=== PATIENT | female | born 1960 | race Caucasian/White ===

== ENCOUNTER 2021-08-04 19:07 | Emergency (ER) | payer OTHER ==
[2021-08-04 19:53] LABS: BASOPHIL 0.2 % (0-2); EOSINOPHIL 0 % (0-5); HCT > 60.0 % (37.0-47.0); HGB 18.6 g/dl (12.5-16.0); LYMPHOCYTE 5.3 % (15-48); MCH 32.1 pg (25.0-31.0); MCHC 30.4 g/dL (32.0-36.0); MCV 105.5 fL (78.0-100.0); MONOCYTE 15.1 % (0-12); MPV 9.9 fL (6.0-9.5); NEUTROPHIL 78.9 % (41-80); NRBC 0.2; PLT 304 K/uL (150-400); RDW 15.9 % (11.5-14.0); WBC 9.7 K/uL (4.0-10.5)
[2021-08-04 20:16] LABS: ALBUMIN 4.1 g/dL (3.4-5.0); BILIRUBIN - TOTAL 0.9 mg/dL (0.2-1.0); BUN/CREAT RATIO (CALC) 22.1 RATIO; CREATININE 1.31 mg/dL (0.51-0.95); GLOBULIN (CALCULATION) 3.6 g/dL; TOTAL PROTEIN 7.7 g/dL (6.4-8.2)
[2021-08-04 20:17] LABS: ACETAMINOPHEN (TYLENOL) < 2.0 ug/mL (10.0-30.0)
[2021-08-04 20:19] LABS: LACTIC ACID 4.6 mmol/L (0.4-1.9)
[2021-08-04 20:20] LABS: AMPHETAMINES NEGATIVE (NEGATIVE); BARBITURATES NEGATIVE (NEGATIVE); BILIRUBIN NEGATIVE (NEGATIVE); BLOOD NEGATIVE Ery/uL (NEGATIVE); CLARITY CLEAR (CLEAR); COLOR YELLOW (YELLOW); ECSTASY (MDMA) NEGATIVE (NEGATIVE); GLUCOSE (U) NORMAL (NORMAL); LEUKOCYTES NEGATIVE Leu/uL (NEGATIVE); MARIJUANA (THC) NEGATIVE (NEGATIVE); METHADONE NEGATIVE (NEGATIVE); NITRITE NEGATIVE (NEGATIVE); OPIATES NEGATIVE (NEGATIVE); OXYCODONE NEGATIVE (NEGATIVE); PROTEIN 1+ mg/dL (NEGATIVE); SPECIFIC GRAVITY >=1.030 (1.001-1.030); UROBILINOGEN 0.2 mg/dL (0.2-1.0)
[2021-08-04 20:27] LABS: BACTERIA TRACE; URINARY WBC RARE
[2021-08-04 20:28] LABS: AMORPHOUS URATES CRYSTALS TRACE
[2021-08-05 03:59] LABS: HCT 49.7 % (37.0-47.0); MCH 32.1 pg (25.0-31.0); MCHC 32.2 g/dL (32.0-36.0); MPV 10.1 fL (6.0-9.5); RBC 4.98 M/uL (4.20-5.40); RDW 15.3 % (11.5-14.0); WBC 10.1 K/uL (4.0-10.5)
[2021-08-05 04:00] LABS: MCV 99.8 fL (78.0-100.0)
[2021-08-05 04:26] LABS: ALBUMIN 3.1 g/dL (3.4-5.0); ALKALINE PHOSHATASE 116 U/L (46-116); ALT 2744 U/L (14-59); AST >2000 U/L (15-37); BILIRUBIN - TOTAL 0.8 mg/dL (0.2-1.0); BUN 29 mg/dL (7-18); BUN/CREAT RATIO (CALC) 32.6 RATIO; CHLORIDE 105 mmol/L (98-107); CO2 (BICARBONATE) 29 mmol/L (21-32); CREATININE 0.89 mg/dL (0.51-0.95); GLOBULIN (CALCULATION) 2.5 g/dL; GLUCOSE 106 mg/dL (74-106); MAGNESIUM 1.9 mg/dL (1.8-2.4); PHOSPHORUS 3.4 mg/dL (2.6-4.7); POTASSIUM 4.9 mmol/L (3.5-5.1)
[2021-08-05 04:39] LABS: TOTAL PROTEIN 5.6 g/dL (6.4-8.2)
== END 2021-08-05 05:00 | disposition other institution (70) ==
LOC: FER 19:07
PROVIDERS: Emergency Medicine
DX: R41.82 Altered mental status, unspecified (principal); R06.89 Other abnormalities of breathing; Z20.822 Contact with and (suspected) exposure to COVID-19
CPT/HCPCS: 31500; 36415; 36600; 70450; 71045; 71250; 71275; 80053; 80305; 81001; 82550; 82803; 83605; 83735; 84100; 84145; 84484; 85025; 85379; 87040; 87070; 87077; 87186; 87205; 93005; 94640; 96365; 96366; 96368; 96375; G0480; J0692; J2250; J2310; J2704; J2930; J3010; J3370; J7030; J7050; Q9967; U0002